=== PATIENT | female | born 1990 | race Caucasian/White ===

== ENCOUNTER 2020-10-26 13:46 | Inpatient (IN) | payer MEDICAID, SELFPAY ==
--- NOTE | ~2020-10-26 | CT_ITS ---
EXAMINATION: CT ABDOMEN AND PELVIS WITHOUT CONTRAST CLINICAL INFORMATION: Reason for Exam abd pain, ? pancreatitis . COMPARISON: No pertinent prior studies are available for comparison. TECHNIQUE: Multidetector volumetric imaging was performed from the superior aspect of the liver through the pubic symphysis without contrast per renal stone protocol. Sagittal and coronal reformatted images were obtained on the technologist workstation. This CT examination was performed using dose optimization techniques as appropriate, variously including the following: *Automated exposure control *Adjustment of mA and/or kV according to patient size (this includes techniques or standardized protocols for targeted exams where dose is matched to indication/reason for exam; i.e. extremities or head) *Use of iterative reconstruction technique DLP: 366 mGy-cm. FINDINGS: LUNG BASES: The visualized lung bases are unremarkable. LIVER, GALLBLADDER, BILIARY TREE: There is diffuse fatty attrition of the liver with areas of focal fatty sparing. No biliary ductal dilatation. Sludge or hyperdense bile layering in the dependent portion of the otherwise unremarkable gallbladder. No gallbladder wall thickening or pericholecystic inflammatory changes. PANCREAS: Unremarkable. No peripancreatic inflammatory changes or fluid at this time. SPLEEN: Unremarkable. ADRENAL GLANDS: Unremarkable. KIDNEYS AND URETERS: The kidneys are normal in size, shape, and attenuation. No hydronephrosis, hydroureter, or calculi seen. No perinephric stranding. BLADDER: Unremarkable. GASTROINTESTINAL TRACT: The small and large bowel are unremarkable. Portions of the colon are decompressed and difficult to assess. ABDOMINAL WALL: No significant hernia is appreciated. LYMPHOVASCULAR STRUCTURES: No lymphadenopathy. The aorta is unremarkable.. PELVIC VISCERA: Unremarkable. OSSEUS STRUCTURES: Unremarkable. CT/CT abdomen wo con IMPRESSION: Diffuse fatty infiltration of the liver but no focal hepatic lesion or biliary ductal dilatation. Layering sludge or hyperdense bowel in the dependent portion of the otherwise unremarkable gallbladder. I do not appreciate any pancreatic ductal dilatation or peripancreatic inflammatory changes/fluid at this time.
[2020-10-26 15:13] VITALS: BP 127/83; PULSE 140; RESP 18; TEMP 36.8; O2SAT 95; BMI 22.3
[2020-10-26 15:36] LABS: MANUAL DIFF FLAG NO
[2020-10-26 15:39] LABS: Basophils Percent Auto 0.3 % (0-2); Hematocrit 39.7 % (37-47); Hemoglobin 14.1 g/dl (12.0-16.0); Imm Gran Pct Auto 1.4 % (0.0-0.4); Lymphocytes Absolute Auto 1.2 X10*3/uL (1.2-4.9); Lymphocytes Percent Auto 16.6 % (20-40); Mean Corpuscular HGB Conc 35.5 g/dl (31.0-35.0); Mean Corpuscular Hemoglobin 33.8 pg (27.0-33.0); Mean Corpuscular Volume 95.2 fL (80-98); Mean Platelet Volume 8.5 fL (9.4-12.3); Monocytes Absolute Auto 0.4 X10*3/uL (0.1-1.2); Monocytes Percent Auto 5.7 % (2-11); NRBC Pct Auto 0.4 /100WBC (0.0-0.2); Neutrophils Absolute Auto 5.3 X10*3/uL (2.0-8.3); Platelet Count 166 X10*3/uL (160-400); Red Blood Count 4.17 X10*6/uL (4.20-5.50)
[2020-10-26 16:07] LABS: Anion Gap 19 (12-20); Blood Urea Nitrogen 5 mg/dL (9-16); Calcium 8.7 mg/dL (8.4-10.2); Carbon Dioxide 24 mmol/L (22-29); Chloride 105 mmol/L (96-108); Creatinine Clr Calc Pharmacy 99.1; Estimated Glomerular Filt Rate > 60; Glucose Random 111 mg/dL (60-115); Potassium 3.8 mmol/L (3.3-5.1); Sodium 144 mmol/L (135-145)
--- NOTE | 2020-10-26 16:30 | ED.GENADULT ---
HPI - General Adult General Chief complaint: General Medical Stated complaint: VOMITING Time Seen by Provider: 10/26/20 16:26 Source: patient and family Mode of arrival: ambulatory Limitations: no limitations History of Present Illness HPI narrative: 30-year-old female who is a daily alcohol drinker, and opiate dependent, patient came in for vomiting for the past 3 days, patient was trying to drink alcohol despite the vomiting but cannot keep it down, patient also using opiate as a drug abuse unable to take any p.o. challenge. Related Data Allergies Allergy/AdvReac Type Severity Reaction Status Date / Time cefuroxime Allergy Shortness Verified 10/26/20 15:19 of Breath Review of Systems Review of Systems: All other systems are reviewed and are negative Constitutional: Reports as per HPI and Reports no additional constitutional complaints Eyes: Reports as per HPI and Reports no additional eye complaints Reports system reviewed and no additional complaints, except as documented Cardiovascular: Reports as per HPI and Reports no additional cardiovascular complaints Respiratory: Reports as per HPI and Reports no additional respiratory complaints Gastrointestinal: Reports as per HPI and Reports no additional gastrointestinal complaints Genitourinary: Reports no additional female genitourinary complaints Musculoskeletal: Reports no additional musculoskeletal complaints Skin/Breast: Reports system reviewed and no additional complaints, except as docu Psychiatric: Reports no additional psychiatric complaints Endocrine: Reports no additional endocrine complaints Hematologic/Lymphatic: Reports no additional hematologic/lymphatic complaints Allergic/Immunologic: Reports no additional allergic/immunologic complaints Reports system reviewed and no additional complaints, except as documented and Reports Abnormal speech present [facility] Social History Social History Advance Directives: No Advance Directives Information Provided: Yes Physical Exam Vital Signs: Vital Signs: Last Vital Signs Temp 98.2 F 10/26/20 15:13 Pulse 140 H 10/26/20 15:13 Resp 18 10/26/20 15:13 BP 127/83 10/26/20 15:13 Pulse Ox 95 10/26/20 15:13 Body Mass Index 22.3 Vital signs have been reviewed as appeared to be correct. Blood pressure normal. Heart rate is elevated. Respiration rate normal. Temperature normal. Oxygen saturation normal. Appearance: Alert. Oriented X3. No acute distress. Anxious Head: Normal external exam. Normocephalic. Atraumatic. No Coughlin signs noted. No raccoon eyes noted Eyes: PERRLA. EOMI. Conjunctiva and sclera normal. Eyelids normal. ENT: TM's Normal. Pharynx normal. Uvula midline. Moist mucous membranes. No trismus noted. No drooling noted. No muffled voice noted. Neck: Normal inspection. Neck supple. FROM. No adenopathy. Thyroid Normal. No meningeal signs. No neck mass noted. CVS: Normal heart rate and rhythm. Heart sound normal. No murmurs noted. Pulses normal throughout. Respiratory: No respiratory distress. Painless inspiration. Breath sounds normal. No wheezes/rales/rhonchi noted. Chest nontender. No accessory muscle usage noted or decreased air movement noted. Abdomen: Soft and nontender. Bowel sounds normal in all 4 quadrants. No distention noted. No organomegaly noted. No visible injury noted. Back: No CVA tenderness. Full range of motion noted. Skin: Skin warm and dry. Normal skin color. Normal skin turgor. No rashes/lesions/lacerations noted. Extremities: No lower extremity edema. Extremities exhibit normal range of motion. Extremities nontender. Bilateral involuntary tremors, and tongue fasciculation. Neuro: Oriented X 3. No motor deficit. No sensory deficit. Reflexes normal. Course Course Course Narrative: Assessment and plan. 30-year-old female history of daily alcohol abuse, patient is unable to drink alcohol for the past few days because of the persistence of vomiting, patient now is sustaining alcohol withdrawal, well admit the patient for IV hydration, Ativan/phenobarb for swelling. Medical Decision Making Lab Data Lab results reviewed: Yes I reviewed the patient's lab results. Result diagrams: 10/26/20 15:32 10/26/20 15:32 Labs: Lab Results 10/26/20 10/26/20 10/26/20 Range/Units 15:32 15:32 15:32 WBC 7.0 (4.8-10.8) X10*3/uL RBC 4.17 L (4.20-5.50) X10*6/uL Hgb 14.1 (12.0-16.0) g/dl Hct 39.7 (37-47) % MCV 95.2 (80-98) fL MCH 33.8 H (27.0-33.0) pg MCHC 35.5 H (31.0-35.0) g/dl RDW 16.0 (11.0-16.0) % Plt Count 166 (160-400) X10*3/uL MPV 8.5 L (9.4-12.3) fL Immature Gran % (Auto) 1.4 H (0.0-0.4) % Neut % (Auto) 76.0 H (45-73) % Lymph % (Auto) 16.6 L (20-40) % [place] % (Auto) 5.7 (2-11) % Eos % (Auto) 0.0 (0-4) % Baso % (Auto) 0.3 (0-2) % Lymph # (Auto) 1.2 (1.2-4.9) X10*3/uL [place] # (Auto) 0.4 (0.1-1.2) X10*3/uL Eos # (Auto) 0.0 (0.0-0.4) X10*3/uL Baso # (Auto) 0.0 (0.0-0.2) X10*3/uL Abs Immat Gran (auto) 0.10 H (0.00-0.03) X10*3/uL Absolute Neuts (auto) 5.3 (2.0-8.3) X10*3/uL Absolute Nucleated RBC 0.030 H (0.0-0.012) X10*3/uL Nucleated RBC % (auto) 0.4 H (0.0-0.2) /100WBC Hold Blue Top SEE NOTE Sodium 144 (135-145) mmol/L Potassium 3.8 (3.3-5.1) mmol/L Chloride 105 (96-108) mmol/L Carbon Dioxide 24 (22-29) mmol/L Anion Gap 19 (12-20) BUN 5 L (9-16) mg/dL Creatinine 0.71 (0.5-1.4) mg/dL Estim Creat Clear Calc 99.1 Estimated GFR > 60 Random Glucose 111 (60-115) mg/dL Calcium 8.7 (8.4-10.2) mg/dL Discharge Plan Discharge Clinical Impression: Alcohol withdrawal Patient Disposition: Admitted As Inpatient
[2020-10-26 17:04] VITALS: BP 131/87; PULSE 129; RESP 20; TEMP 36.8; O2SAT 98
--- NOTE | 2020-10-26 17:05 | PC.NURSE ---
Called pharmacy for folic acid- awaiting arrival of medication.
[2020-10-26 17:13] LABS: Alanine Aminotransferase 27 U/L (0-31); Albumin Level 4.3 g/dL (3.5-5.0); Alkaline Phosphatase 67 U/L (39-117); Aspartate Amino Transferase 74 U/L (5-31); Bilirubin Direct 0.2 mg/dL (0.0-0.5); Bilirubin Total 0.5 mg/dL (0.0-1.0); Magnesium 2.2 mg/dL (1.6-2.6)
[2020-10-26] MEDS: ondansetron HCL 4 MG/2 ML VIAL IVPUSH ×2 (17:13→18:43)
[2020-10-26] MEDS: Pantoprazole Sodium 40 MG/10 ML VIAL IVPUSH (17:13)
[2020-10-26] MEDS: PHENobarbitaL sodium 130 MG/ML VIAL 175 MG IM (17:13)
[2020-10-26 17:17] LABS: Ethanol 251 mg/dL
[2020-10-26 17:32] LABS: Lipase 216 U/L (8-78)
[2020-10-26] MEDS: 0.9 % Sodium Chloride 1,000 ML 999 ML IVCONT (17:54)
[2020-10-26] MEDS: Thiamine HCL 200 MG/2 ML VIAL 100 MG IVPUSH (17:54)
[2020-10-26 18:40] VITALS: BP 131/81; PULSE 117; RESP 20; TEMP 36.9; O2SAT 98
--- NOTE | 2020-10-26 18:42 | P.EN_ITS ---
Event Note Date of Service: 10/27/20 Event Note: I interviewed and examined the patient. I discussed their present ation and management with the mid-level provider. I reviewed the history and physical and agree with the documentation, with the following additions and corrections: 30yo F with inflammatory arthritis/sacroiliitis presenting with 3d of vomiting and worsening abdominal pain in the setting of drinking 2 bottles of wine daily for the past 6 months. Also taking kratom, which she sees as a natural alternative to opioids for her back pain. On exam, tachycardic with epigastric tenderness. Not tremulous but already started on phenobarbital in ED. Lipase and AST elevated. Plan admit to [facility], phenobarbital taper, folate/multivitamin, sobriety counseling, addiciton medicine consultation. Suspect pancreatitis- CT pending. Will give IV fluid hydration + morphine prn pain
[2020-10-26] MEDS: Lactated Ringers 1,000 ML 150 ML IVCONT (18:43)
[2020-10-26] MEDS: Enoxaparin Sodium 40 MG/0.4 ML SYRINGE SUBCUT (18:43)
[2020-10-26] MEDS: Ketorolac Tromethamine 15 MG/ML VIAL IV (18:43)
--- NOTE | 2020-10-26 20:05 | HP_ITS ---
DATE OF SERVICE: 10/26/2020 CHIEF COMPLAINT: Back pain. HISTORY OF PRESENT ILLNESS: 30-year-old woman with history of heavy alcohol drinking. She reports she drinks at least 2 bottles of wine and has been doing this consistently for over the past 6 months. She also is opiate dependent and reports that she takes it over the counter, natural opiate for her back pain. She reported that she started having some vomiting over the last 3 days and had her last drink of alcohol this morning. She reported that several weeks ago, she was started on naltrexone for opiate abuse and since then reports that her alcohol withdrawals and pain have been worse. In the ER, her lipase was noted to be elevated at 216. She does have some abdominal pain. Her pulse was noted to be elevated at 129. She was started on phenobarbital while in the ER. Given folic acid, lorazepam, thiamine, Protonix, Zofran. She will be admitted for further management and treatment of acute pancreatitis secondary to alcohol abuse. PAST MEDICAL HISTORY: 1. Alcohol abuse. 2. Inflammatory arthritis with history of tissue removal from SI joint. 3. . FAMILY HISTORY: Denies cardiac disease. SOCIAL HISTORY: Reports drinking 2 bottles of wine a day for the past 6 months. Denies tobacco or illicit drug use. ALLERGIES: ALLERGIES TO CEFUROXIME. MEDICATIONS: 1. Gabapentin 3 caps p.o. at bedtime. 2. Sertraline 1 tab p.o. at bedtime. REVIEW OF SYSTEMS: CONSTITUTIONAL: Denies any recent fever, chills, or decrease in appetite. RESPIRATORY: Denies any shortness of breath, cough, or sputum production. CARDIOVASCULAR: Denies any chest pain, orthopnea, PND, or edema. GASTROINTESTINAL: See HPI. GENITOURINARY: Denies any dysuria, frequency, or hematuria. MUSCULOSKELETAL: Denies any joint pains or swelling. NEUROPSYCH: Denies any weakness or seizures. All other systems are reviewed and are negative. PHYSICAL EXAMINATION: CONSTITUTIONAL: The patient is resting in bed, in moderate amount of pain. VITAL SIGNS: 98.2, 129, 20, 131/87, 98% on room air. SKIN: Intact without rashes or open sores. HEENT: Head is normocephalic, atraumatic. Eyes, pupils are PERRLA. Sclerae anicteric. Mouth and Throat: Mucous membranes are intact and moist. NECK: Supple. No lymphadenopathy. No JVD noted. CHEST: Clear to auscultation without wheezes, rhonchi, or rales. HEART: Regular rate and rhythm. Clear S1, S2. No murmurs, rubs, or gallops. ABDOMEN: Positive bowel sounds. Abdomen is diffusely tender. NEURO: The patient is alert and oriented x3. Cranial nerves II through XII are grossly intact without focal deficits. LABORATORY DATA: WBC 7.0, hemoglobin 14.1, hematocrit 39.7, platelets 166. Sodium is 144, potassium is 2.8, chloride is 105, bicarb is 24, BUN is 5, creatinine is 0.71. Alcohol level is 251. ASSESSMENT AND PLAN: A 30-year-old woman with a history of heavy alcohol abuse and opiate abuse, presents with abdominal pain and back pain. She reports that she was started on naltrexone several weeks ago for chronic opiate use. She reports that her withdrawals have been pretty severe since then. She also reported vomiting over the last 3 days, which has not subsided and she has continued to drink. 1. Alcohol withdrawal. Drinks 2 bottles of wine a day over the last 6 months. Prior to that, had not been a heavy drinker. a. Phenobarbital protocol. b. Care team consultation. c. Folic acid, thiamine, multivitamin. 2. Abdominal pain/pancreatitis, secondary to alcohol abuse. a. Aggressive IV fluid hydration. b. Pain management. c. Abdominal CT is pending. 3. Back pain. The patient reports history of tissue removal from the SI joint due to her arthritis. a. Pain Management. 4. Opiate abuse. The patient reports taking an over the counter organic pain medication, unfamiliar with the name. She also takes gabapentin. According to the prescription, drug monitoring program, no other opiates are noted since 2019. 5. Tachycardia. Secondary to pain. 6. IV fluid hydration. 7. Deep venous thrombosis prophylaxis with Lovenox. LORAINE Bailon MD JR/LIANE / [id number]
[2020-10-26] MEDS: PHENobarbitaL sodium 130 MG/ML VIAL IM ×2 (20:23→22:51)
--- NOTE | 2020-10-26 20:45 | MHC.CM.PN ---
CM attempted to meet with pt, but pt was sleeping. Will be admitted with alcohol withdrawal and acute pancreatitis. Pt 999 status without bed assignment. Pt listed as self-pay. Will refer to financial counseling. Will meet with pt when more awake. CM to follow for d/c needs.
[2020-10-26 20:57] LABS: COVID-19 Test Negative (Negative)
[2020-10-26] MEDS: Gabapentin 300 MG CAPSULE PO (21:25)
[2020-10-26] MEDS: Sertraline HCL 100 MG TABLET PO (21:26)
[2020-10-26] MEDS: hydrOXYzine HCL 25 MG TABLET PO (21:26)
[2020-10-26 21:31] VITALS: RESP 20
[2020-10-26] MEDS: Morphine Sulfate 2 MG/ML CARTRIDGE IVPUSH (21:31)
--- NOTE | 2020-10-26 21:40 | PC.NURSE ---
Pt medicated for increased anxiety, diffuse abd pain. Pt denies nausea. Awaiting bed assignment. Pt aware and agreeable to plan of care.
--- NOTE | 2020-10-26 22:48 | MHC.CM.PN ---
CM attempted to meet with pt. again, but pt continues to sleep. Pt recently medicated. Unable to complete assessment at this time. Pt will need referral to financial counseling. CM to follow for d/c needs.
[2020-10-26] MEDS: oxyCODONE HCl Immed Release 5 MG TABLET PO (22:50)
[2020-10-26 22:57] VITALS: BP 132/56; PULSE 98; RESP 20; TEMP 37.1; O2SAT 98
--- NOTE | 2020-10-26 22:58 | PC.NURSE ---
Verified w/ Dr. Jose and pharmacy ok to give Ativan
[2020-10-26] MEDS: LORazepam 1 MG TABLET PO (22:59)
[2020-10-27 01:25] VITALS: BP 134/76; PULSE 134; RESP 16; TEMP 36.7; O2SAT 99
--- NOTE | 2020-10-27 01:34 | PC.NURSE ---
Dr. Jose aware of pts status and vs.
[2020-10-27] MEDS: Lactated Ringers 1,000 ML 150 ML IVCONT ×4 (02:11→22:46)
[2020-10-27 07:16] LABS: MANUAL DIFF FLAG NO
[2020-10-27 07:26] LABS: Basophils Percent Auto 0.2 % (0-2); Eosinophils Absolute Auto 0.1 X10*3/uL (0.0-0.4); Eosinophils Percent Auto 0.8 % (0-4); Hematocrit 30.7 % (37-47); Hemoglobin 10.6 g/dl (12.0-16.0); Imm Gran Abs Auto 0.06 X10*3/uL (0.00-0.03); Imm Gran Pct Auto 0.9 % (0.0-0.4); Lymphocytes Absolute Auto 1.1 X10*3/uL (1.2-4.9); Lymphocytes Percent Auto 16.4 % (20-40); Mean Corpuscular HGB Conc 34.5 g/dl (31.0-35.0); Mean Corpuscular Hemoglobin 33.8 pg (27.0-33.0); Mean Corpuscular Volume 97.8 fL (80-98); Mean Platelet Volume 8.4 fL (9.4-12.3); Monocytes Absolute Auto 0.6 X10*3/uL (0.1-1.2); Monocytes Percent Auto 8.8 % (2-11); Neutrophils Absolute Auto 4.7 X10*3/uL (2.0-8.3); Neutrophils Percent Auto 72.9 % (45-73); Platelet Count 106 X10*3/uL (160-400); Red Blood Count 3.14 X10*6/uL (4.20-5.50); White Blood Count 6.4 X10*3/uL (4.8-10.8)
[2020-10-27 07:45] LABS: Anion Gap 12 (12-20); Blood Urea Nitrogen 9 mg/dL (9-16); Carbon Dioxide 25 mmol/L (22-29); Chloride 106 mmol/L (96-108); Estimated Glomerular Filt Rate > 60; Glucose Random 95 mg/dL (60-115); Potassium 3.3 mmol/L (3.3-5.1); Sodium 140 mmol/L (135-145)
[2020-10-27 08:00] LABS: Calcium 7.4 mg/dL (8.4-10.2); Lipase 657 U/L (8-78)
--- NOTE | 2020-10-27 08:01 | PC.NURSE ---
report taken from torres rn pt here for acute pancreatitis, elevated lipase. pt appears to be sleeping at this time, iv fluids infusing, no appearance of withdrawal s/s. wctm.
[2020-10-27 08:54] VITALS: BP 137/91; PULSE 114; RESP 18; O2SAT 99
[2020-10-27] MEDS: Lidocaine 4 % Patch ADH..PATCH 2 PATCH TRANSDERMA (08:59)
[2020-10-27] MEDS: Thiamine HCL 100 MG TABLET PO (09:00)
[2020-10-27] MEDS: Folic Acid 1 MG TABLET PO (09:00)
[2020-10-27] MEDS: Multivitamin TABLET 1 TAB PO (09:00)
[2020-10-27] MEDS: Morphine Sulfate 2 MG/ML CARTRIDGE IVPUSH ×2 (09:00→22:52)
[2020-10-27] MEDS: PHENobarbitaL 15 MG TABLET 45 MG PO ×2 (09:00→20:34)
--- NOTE | 2020-10-27 09:14 | MHC.CM.PN ---
pt lives alone in her apt. she reports that she is independent in her care. she has a s.o. who can help her c her needs. she will benefit from a care team consult prior to dc. if pt returns home at dc it will be without any svcs and her s.o. will transport. dc plan is to detox or home pending on care team consult . cm to cont. to follow.
--- NOTE | 2020-10-27 09:47 | PC.NURSE ---
pt waking up, appears uncomfortable, asking for prn pain medications. tolerating po, given morning meds and prn pain medications. pt awaiting inpt bed assign. wctm.
--- NOTE | 2020-10-27 15:44 | HO.PM.IMPN ---
Subjective Subjective Date of Service: 10/27/20 Interval History: still c/o severe epigastric pain + nausea no fever Physical Exam Vital Signs: Vital Signs: Last Vital Signs Temp 98.1 F 10/27/20 01:25 Pulse 114 H 10/27/20 08:54 Resp 18 10/27/20 08:54 BP 137/91 H 10/27/20 08:54 Pulse Ox 99 10/27/20 08:54 Body Mass Index 22.3 Gen: in no acute distress HEENT: sclera anicteric, moist mucus membranes Neck: supple Lungs: clear to auscultation bilaterally Heart: tachycardic, no murmurs Abd: soft, epigastric + periumbilical tenderness without rebound Ext: no edema Skin: warm/well-perfused Neuro: alert and oriented x3, no focal findings Psych: appropriate affect Objective Data Current Medications Generic Name Dose Route Start Last Admin Trade Name Freq PRN Reason Stop Dose Admin Acetaminophen 650 mg 10/26/20 18:18 Acetaminophen 325 Mg Tablet PO Q6H PRN Pain, Mild (Pain Scale 1-3) Enoxaparin Sodium 40 mg 10/26/20 19:00 10/26/20 18:43 Enoxaparin Sodium 40 Mg/0.4 Ml Syringe SUBCUT 40 mg Q24H DAYRON Administration Folic Acid 1 mg 10/27/20 09:00 10/27/20 09:00 Folic Acid 1 Mg Tablet PO 1 mg DAILY [facility] Administration Gabapentin 300 mg 10/26/20 21:00 10/26/20 21:25 Gabapentin 300 Mg Capsule PO 300 mg BEDTIME DAYRON Administration Hydroxyzine HCl 25 mg 10/26/20 21:01 10/26/20 21:26 Hydroxyzine Hcl 25 Mg Tablet PO 25 mg QID PRN Administration anxiety/restlessness Lactated Ringer's 1,000 mls @ 150 mls/hr 10/26/20 18:18 10/27/20 14:43 Lr IVCONT 150 mls/hr .[id number] DAYRON Administration Lidocaine 2 patch 10/27/20 09:00 10/27/20 08:59 Lidocaine 4 % Patch Adh..Patch TRANSDERMA 2 patch DAILY [facility]RON Administration Protocol Medication 1 each 10/26/20 17:00 No Benzodiazepines MISCELLANE DAILY [facility] Protocol Morphine Sulfate 2 mg 10/26/20 18:18 10/27/20 09:00 Morphine Sulfate 2 Mg/Ml Cartridge IVPUSH 2 mg Q4H PRN Administration Pain, Mild (Pain Scale 1-3) Multivitamins/Vitamin C 1 tab 10/27/20 09:00 10/27/20 09:00 Multivitamin Tablet PO 1 tab DAILY [facility] Administration Ondansetron HCl 4 mg 10/26/20 18:18 Ondansetron Hcl 4 Mg/2 Ml Vial IVPUSH Q8H PRN Nausea and Vomiting Oxycodone HCl 5 mg 10/26/20 18:18 10/26/20 22:50 Oxycodone Hcl Immed Release 5 Mg Tablet PO 5 mg Q4H PRN Administration pain Pharmacy Consult 1 each 10/26/20 16:38 Consult Rx Perform Med Rec MISCELLANE ONCE PRN Consult order Phenobarbital 45 mg 10/27/20 09:00 10/27/20 09:00 Phenobarbital 15 Mg Tablet PO 10/28/20 21:01 45 mg BID [facility] Administration Protocol Phenobarbital 15 mg 10/29/20 09:00 Phenobarbital 15 Mg Tablet PO 10/30/20 21:01 BID [facility] Protocol Phenobarbital 15 mg 10/31/20 09:00 Phenobarbital 15 Mg Tablet PO 11/01/20 09:01 DAILY [facility] Protocol Sertraline HCl 100 mg 10/26/20 21:00 10/26/20 21:26 Sertraline Hcl 100 Mg Tablet PO 100 mg BEDTIME [facility] Administration Sodium Chloride 3 ml 10/27/20 00:00 10/27/20 07:55 0.9 % Sodium Chloride Flush 3 Ml Syringe IVFLUSH Not Given QSHIFT [facility] Thiamine HCl 100 mg 10/27/20 09:00 10/27/20 09:00 Thiamine Hcl 100 Mg Tablet PO 100 mg DAILY [facility] Administration Labs CBC & Chem 7: 10/27/20 07:12 10/27/20 07:12 Labs: Laboratory Results - last 24 hr 10/26/20 10/26/20 10/26/20 15:32 15:32 20:36 WBC RBC Hgb Hct MCV MCH MCHC RDW Plt Count MPV Immature Gran % (Auto) Neut % (Auto) Lymph % (Auto) [place] % (Auto) Eos % (Auto) Baso % (Auto) Lymph # (Auto) [place] # (Auto) Eos # (Auto) Baso # (Auto) Abs Immat Gran (auto) Absolute Neuts (auto) Absolute Nucleated RBC Nucleated RBC % (auto) Sodium 144 Potassium 3.8 Chloride 105 Carbon Dioxide 24 Anion Gap 19 BUN 5 L Creatinine 0.71 Estim Creat Clear Calc 99.1 Estimated GFR > 60 Random Glucose 111 Calcium 8.7 Magnesium 2.2 Total Bilirubin 0.5 Direct Bilirubin 0.2 AST 74 H ALT 27 Alkaline Phosphatase 67 Total Protein 8.0 Albumin 4.3 Lipase 216 H Ethyl Alcohol 251 COVID-19 (BETY) Negative COVID-19 Clin Com See Note 10/27/20 10/27/20 07:12 07:12 WBC 6.4 RBC 3.14 L D Hgb 10.6 L D Hct 30.7 L D MCV 97.8 MCH 33.8 H MCHC 34.5 RDW 16.0 Plt Count 106 L D MPV 8.4 L Immature Gran % (Auto) 0.9 H Neut % (Auto) 72.9 Lymph % (Auto) 16.4 L [place] % (Auto) 8.8 Eos % (Auto) 0.8 Baso % (Auto) 0.2 Lymph # (Auto) 1.1 L [place] # (Auto) 0.6 Eos # (Auto) 0.1 Baso # (Auto) 0.0 Abs Immat Gran (auto) 0.06 H Absolute Neuts (auto) 4.7 Absolute Nucleated RBC 0.000 Nucleated RBC % (auto) 0.0 Sodium 140 Potassium 3.3 Chloride 106 Carbon Dioxide 25 Anion Gap 12 BUN 9 D Creatinine 0.67 Estim Creat Clear Calc 105.0 Estimated GFR > 60 Random Glucose 95 Calcium 7.4 L D Magnesium Total Bilirubin Direct Bilirubin AST ALT Alkaline Phosphatase Total Protein Albumin Lipase 657 H Ethyl Alcohol COVID-19 (BETY) COVID-19 Clin Com ITS Impressions Abdomen CT 10/26/20 19:56 IMPRESSION: Diffuse fatty infiltration of the liver but no focal hepatic lesion or biliary ductal dilatation. Layering sludge or hyperdense bowel in the dependent portion of the otherwise unremarkable gallbladder. I do not appreciate any pancreatic ductal dilatation or peripancreatic inflammatory changes/fluid at this time. Assessment and Plan (1) Alcohol withdrawal: Status: Acute (2) Alcoholic pancreatitis: Status: Acute (3) Opioid withdrawal: Status: Acute Assessment and Plan: hospital d#2 30yo F with hx alcohol and opioid/kratom abuse presenting with worsening abd pain/nausea, admitted for EtOH withdrawal and suspected pancreatitis # alcohol withdrawal - phenobarbital taper, vitamins, counseling # acute alcoholic pancreatitis - still suspected despite negative CT findings (done without contrast), IV fluid hydration, EtOH cessation, prn morphine # opioid withdrawal from kratom - prn clonidine # inflammatory arthritis/sacroiliitis - will need outpt rheumatology # VTE ppx - LMWH
[2020-10-27 16:10] VITALS: BP 131/86; PULSE 105; RESP 14; O2SAT 96
--- NOTE | 2020-10-27 16:45 | HO.ADDICTCON ---
History of Present Illness Date of Service: 10/27/2020 Chief Complaint: Abdominal pain Reason for Consult: AUD Also use of Kratom Requesting physician: Valdemar Parker Discussed with referring provider: Yes Sources of Information: patient interviewed and chart reviewed HPI Narrative: Patient is a 30 year old female currently medically admitted with alcohol withdrawal and acute pancreatitis. Consult requested as patient was reproting daily Kratom use as well. Patient seen in ED, eyes closed, visibly uncomfortable Reports she has been taking Kratom (in powder form in tea) for about 4 years. Unclear how much she is currently taking, but did report that at one time she was taking it every two hours. She states she has been trying to cut down the amount she takes (for her back pain) and has not had any in two days d/t vomiting. Per H&P, she reports drinking 2 bottles of wine every night Past Psychiatric History: not reviewed Medical Evaluation Reviewed: Yes Personal & Social History: pending full assessment Review of Systems Review of Systems patient with eyes closed, reporting abdominal pain and back pain. Visibly tremulous as well Diagnostics Vital Signs (24Hr): Vital Signs - 24 hr 10/26/20 17:04 10/26/20 18:40 10/26/20 21:31 Temperature 98.2 F 98.4 F Pulse Rate 129 H 117 H Respiratory Rate 20 20 20 Blood Pressure 131/87 131/81 Pulse Oximetry 98 98 10/26/20 22:57 10/27/20 01:25 10/27/20 08:54 Temperature 98.7 F 98.1 F Pulse Rate 98 134 H 114 H Respiratory Rate 20 16 18 Blood Pressure 132/56 L 134/76 137/91 H Pulse Oximetry 98 99 99 10/27/20 16:10 Temperature Pulse Rate 105 H Respiratory Rate 14 Blood Pressure 131/86 Pulse Oximetry 96 Body Mass Index 22.3 Labs Results: 10/27/20 07:12 10/27/20 07:12 Labs: Laboratory Results - last 48 hr 10/26/20 10/26/20 10/26/20 15:32 15:32 15:32 WBC 7.0 RBC 4.17 L Hgb 14.1 Hct 39.7 MCV 95.2 MCH 33.8 H MCHC 35.5 H RDW 16.0 Plt Count 166 MPV 8.5 L Immature Gran % (Auto) 1.4 H Neut % (Auto) 76.0 H Lymph % (Auto) 16.6 L [place] % (Auto) 5.7 Eos % (Auto) 0.0 Baso % (Auto) 0.3 Lymph # (Auto) 1.2 [place] # (Auto) 0.4 Eos # (Auto) 0.0 Baso # (Auto) 0.0 Abs Immat Gran (auto) 0.10 H Absolute Neuts (auto) 5.3 Absolute Nucleated RBC 0.030 H Nucleated RBC % (auto) 0.4 H Hold Blue Top SEE NOTE Sodium 144 Potassium 3.8 Chloride 105 Carbon Dioxide 24 Anion Gap 19 BUN 5 L Creatinine 0.71 Estim Creat Clear Calc 99.1 Estimated GFR > 60 Random Glucose 111 Calcium 8.7 Magnesium 2.2 Total Bilirubin 0.5 Direct Bilirubin 0.2 AST 74 H ALT 27 Alkaline Phosphatase 67 Total Protein 8.0 Albumin 4.3 Lipase 216 H Ethyl Alcohol COVID-19 ([facility]) COVID-19 [employer] 10/26/20 10/26/20 10/27/20 15:32 20:36 07:12 WBC 6.4 RBC 3.14 L D Hgb 10.6 L D Hct 30.7 L D MCV 97.8 MCH 33.8 H MCHC 34.5 RDW 16.0 Plt Count 106 L D MPV 8.4 L Immature Gran % (Auto) 0.9 H Neut % (Auto) 72.9 Lymph % (Auto) 16.4 L [place] % (Auto) 8.8 Eos % (Auto) 0.8 Baso % (Auto) 0.2 Lymph # (Auto) 1.1 L [place] # (Auto) 0.6 Eos # (Auto) 0.1 Baso # (Auto) 0.0 Abs Immat Gran (auto) 0.06 H Absolute Neuts (auto) 4.7 Absolute Nucleated RBC 0.000 Nucleated RBC % (auto) 0.0 Hold Blue Top Sodium Potassium Chloride Carbon Dioxide Anion Gap BUN Creatinine Estim Creat Clear Calc Estimated GFR Random Glucose Calcium Magnesium Total Bilirubin Direct Bilirubin AST ALT Alkaline Phosphatase Total Protein Albumin Lipase Ethyl Alcohol 251 COVID-19 ([facility]) Negative COVID-19 Clin Com See Note 10/27/20 07:12 WBC RBC Hgb Hct MCV MCH MCHC RDW Plt Count MPV Immature Gran % (Auto) Neut % (Auto) Lymph % (Auto) [place] % (Auto) Eos % (Auto) Baso % (Auto) Lymph # (Auto) [place] # (Auto) Eos # (Auto) Baso # (Auto) Abs Immat Gran (auto) Absolute Neuts (auto) Absolute Nucleated RBC Nucleated RBC % (auto) Hold Blue Top Sodium 140 Potassium 3.3 Chloride 106 Carbon Dioxide 25 Anion Gap 12 BUN 9 D Creatinine 0.67 Estim Creat Clear Calc 105.0 Estimated GFR > 60 Random Glucose 95 Calcium 7.4 L D Magnesium Total Bilirubin Direct Bilirubin AST ALT Alkaline Phosphatase Total Protein Albumin Lipase 657 H Ethyl Alcohol COVID-19 ([facility]) COVID-19 Clin Com Imaging Radiology Impressions: ITS Impressions Abdomen CT 10/26/20 19:56 IMPRESSION: Diffuse fatty infiltration of the liver but no focal hepatic lesion or biliary ductal dilatation. Layering sludge or hyperdense bowel in the dependent portion of the otherwise unremarkable gallbladder. I do not appreciate any pancreatic ductal dilatation or peripancreatic inflammatory changes/fluid at this time. Mental Status Exam Mental Status Exam Patient Appearance: Perspiring Patient Orientation: Person, Place, Time and Situation Level of Consciousness: Drowsy Patient Behavior: Sedated Medications Medications Current Medications Generic Name Dose Route Start Last Admin Trade Name Freq PRN Reason Stop Dose Admin Acetaminophen 650 mg 10/26/20 18:18 Acetaminophen 325 Mg Tablet PO Q6H PRN Pain, Mild (Pain Scale 1-3) Clonidine HCl 0.1 mg 10/27/20 15:45 Clonidine Hcl 0.1 Mg Tablet PO TID PRN opioid withdrawal Protocol Enoxaparin Sodium 40 mg 10/26/20 19:00 10/26/20 18:43 Enoxaparin Sodium 40 Mg/0.4 Ml Syringe SUBCUT 40 mg Q24H [facility] Administration Folic Acid 1 mg 10/27/20 09:00 10/27/20 09:00 Folic Acid 1 Mg Tablet PO 1 mg DAILY [facility] Administration Gabapentin 300 mg 10/26/20 21:00 10/26/20 21:25 Gabapentin 300 Mg Capsule PO 300 mg BEDTIME [facility] Administration Hydroxyzine HCl 25 mg 10/26/20 21:01 10/26/20 21:26 Hydroxyzine Hcl 25 Mg Tablet PO 25 mg QID PRN Administration anxiety/restlessness Lactated Ringer's 1,000 mls @ 150 mls/hr 10/26/20 18:18 10/27/20 14:43 Lr IVCONT 150 mls/hr .Q6H40M [facility] Administration Lidocaine 2 patch 10/27/20 09:00 10/27/20 08:59 Lidocaine 4 % Patch Adh..Patch TRANSDERMA 2 patch DAILY [facility] Administration Protocol Medication 1 each 10/26/20 17:00 No Benzodiazepines MISCELLANE DAILY [facility] Protocol Morphine Sulfate 2 mg 10/26/20 18:18 10/27/20 09:00 Morphine Sulfate 2 Mg/Ml Cartridge IVPUSH 2 mg Q4H PRN Administration Pain, Mild (Pain Scale 1-3) Multivitamins/Vitamin C 1 tab 10/27/20 09:00 10/27/20 09:00 Multivitamin Tablet PO 1 tab DAILY [facility] Administration Ondansetron HCl 4 mg 10/26/20 18:18 Ondansetron Hcl 4 Mg/2 Ml Vial IVPUSH Q8H PRN Nausea and Vomiting Oxycodone HCl 5 mg 10/26/20 18:18 10/26/20 22:50 Oxycodone Hcl Immed Release 5 Mg Tablet PO 5 mg Q4H PRN Administration pain Pharmacy Consult 1 each 10/26/20 16:38 Consult Rx Perform Med Rec MISCELLANE ONCE PRN Consult order Phenobarbital 45 mg 10/27/20 09:00 10/27/20 09:00 Phenobarbital 15 Mg Tablet PO 10/28/20 21:01 45 mg BID [facility] Administration Protocol Phenobarbital 15 mg 10/29/20 09:00 Phenobarbital 15 Mg Tablet PO 10/30/20 21:01 BID [facility] Protocol Phenobarbital 15 mg 10/31/20 09:00 Phenobarbital 15 Mg Tablet PO 11/01/20 09:01 DAILY [facility] Protocol Sertraline HCl 100 mg 10/26/20 21:00 10/26/20 21:26 Sertraline Hcl 100 Mg Tablet PO 100 mg BEDTIME [facility] Administration Sodium Chloride 3 ml 10/27/20 00:00 10/27/20 16:14 0.9 % Sodium Chloride Flush 3 Ml Syringe IVFLUSH Not Given QSHIFT [facility] Thiamine HCl 100 mg 10/27/20 09:00 10/27/20 09:00 Thiamine Hcl 100 Mg Tablet PO 100 mg DAILY [facility] Administration Allergies Allergies Allergy/AdvReac Type Severity Reaction Status Date / Time cefuroxime Allergy Shortness Verified 10/26/20 15:19 of Breath Assessment & Plan Assessment & Plan (1) Opioid withdrawal: Status: Acute Code(s): F11.23 - Opioid dependence with withdrawal Recommendations: Kratom withdrawal usually treated by using alpha-2 agonist (Clonidine) and in some cases short term benzos to treat severe anxiety Withdrawal in some cases can last up to 7 days Will see patient in AM to gather better history and ensure there are no opioids being used ETOH withdrawal being mananged with phenobarb protocol Greater than 50% of the session was spent on counseling and/or coordination of care [facility] Social History Social History Alcohol intake: current Alcohol intake frequency: 3 or more drinks per day Smoking Status: Unknown if ever smoked Use of substances other than those prescribed or required for medical reasons: Yes Substance Use Type: Opiates Advance Directives: No Advance Directives Information Provided: Yes service: No Current occupational status: unemployed
--- NOTE | 2020-10-27 19:31 | PC.NURSE ---
report was given to DANIEL Odell
[2020-10-27 20:22] VITALS: BP 141/96; PULSE 110; RESP 18; O2SAT 96
[2020-10-27 20:23] VITALS: BP 143/91; PULSE 122; RESP 16; TEMP 37.3; O2SAT 99
[2020-10-27] MEDS: ondansetron HCL 4 MG/2 ML VIAL IVPUSH (20:23)
[2020-10-27] MEDS: Sertraline HCL 100 MG TABLET PO (20:34)
[2020-10-27] MEDS: Gabapentin 300 MG CAPSULE PO (20:34)
[2020-10-27] MEDS: oxyCODONE HCl Immed Release 5 MG TABLET PO (20:34)
[2020-10-27] MEDS: Enoxaparin Sodium 40 MG/0.4 ML SYRINGE SUBCUT (20:35)
[2020-10-27] MEDS: hydrOXYzine HCL 25 MG TABLET PO (20:53)
[2020-10-27 23:26] VITALS: BP 121/88; PULSE 99; RESP 20; TEMP 36.8; O2SAT 96
[2020-10-28] VITALS (9 sets, daily range): BP systolic 120–134; BP diastolic 82–93; PULSE 82–106; RESP 16–20; TEMP 36.4–37.2; O2SAT 95–98
[2020-10-28] MEDS: oxyCODONE HCl Immed Release 5 MG TABLET PO ×4 (00:59→22:49)
[2020-10-28] MEDS: Calcium Carbonate 750 MG TAB.CHEW PO (01:16)
[2020-10-28] MEDS: ondansetron HCL 4 MG/2 ML VIAL IVPUSH (01:17)
[2020-10-28] MEDS: hydrOXYzine HCL 25 MG TABLET PO ×2 (01:59→22:50)
[2020-10-28] MEDS: traMADoL HCL 50 MG TABLET 25 MG PO (03:04)
[2020-10-28] MEDS: Morphine Sulfate 2 MG/ML CARTRIDGE IVPUSH ×4 (04:15→19:59)
[2020-10-28] MEDS: Lactated Ringers 1,000 ML 150 ML IVCONT ×3 (04:37→19:49)
[2020-10-28 06:30] LABS: MANUAL DIFF FLAG NO
[2020-10-28 06:42] LABS: Basophils Percent Auto 0.2 % (0-2); Eosinophils Absolute Auto 0.1 X10*3/uL (0.0-0.4); Eosinophils Percent Auto 0.8 % (0-4); Hematocrit 29.4 % (37-47); Hemoglobin 10.3 g/dl (12.0-16.0); Imm Gran Abs Auto 0.07 X10*3/uL (0.00-0.03); Imm Gran Pct Auto 1.2 % (0.0-0.4); Lymphocytes Absolute Auto 1.1 X10*3/uL (1.2-4.9); Lymphocytes Percent Auto 18.1 % (20-40); Mean Corpuscular Hemoglobin 33.9 pg (27.0-33.0); Mean Corpuscular Volume 96.7 fL (80-98); Mean Platelet Volume 8.6 fL (9.4-12.3); Monocytes Absolute Auto 0.4 X10*3/uL (0.1-1.2); Monocytes Percent Auto 6.5 % (2-11); Neutrophils Absolute Auto 4.4 X10*3/uL (2.0-8.3); Neutrophils Percent Auto 73.2 % (45-73); Red Blood Count 3.04 X10*6/uL (4.20-5.50); Red Cell Distribution Width 15.5 % (11.0-16.0)
[2020-10-28 06:44] LABS: Platelet Count 99 X10*3/uL (160-400)
[2020-10-28 07:30] LABS: Alanine Aminotransferase 16 U/L (0-31); Albumin Level 2.9 g/dL (3.5-5.0); Alkaline Phosphatase 51 U/L (39-117); Anion Gap 11 (12-20); Aspartate Amino Transferase 33 U/L (5-31); Bilirubin Total 0.6 mg/dL (0.0-1.0); Blood Urea Nitrogen 6 mg/dL (9-16); Calcium 7.4 mg/dL (8.4-10.2); Carbon Dioxide 24 mmol/L (22-29); Chloride 104 mmol/L (96-108); Creatinine Clr Calc Pharmacy 121.3; Estimated Glomerular Filt Rate > 60; Glucose Random 82 mg/dL (60-115); Magnesium 1.4 mg/dL (1.6-2.6); Potassium 2.9 mmol/L (3.3-5.1); Sodium 136 mmol/L (135-145); Total Protein 5.2 g/dL (6.5-8.0)
[2020-10-28] MEDS: Potassium Chloride/H20 10 MEQ/100 ML PIGGYBACK 100 MEQ IV ×4 (08:47→13:17)
[2020-10-28] MEDS: PHENobarbitaL 15 MG TABLET 45 MG PO ×2 (08:47→19:55)
[2020-10-28] MEDS: Lidocaine 4 % Patch ADH..PATCH 2 PATCH TRANSDERMA (08:47)
[2020-10-28] MEDS: Thiamine HCL 100 MG TABLET PO (08:48)
[2020-10-28] MEDS: Multivitamin TABLET 1 TAB PO (08:48)
[2020-10-28] MEDS: Folic Acid 1 MG TABLET PO (08:48)
[2020-10-28 09:20] LABS: HBS Num1 209.76 mIU/mL (0-7.99); HBsAGNum1 0.22 S/CO (0.00-0.99); Hepatitis B Surface Antigen Negative (Negative); ~Hepatitis B Surface Antibody REACTIVE (Nonreactive)
[2020-10-28 09:56] LABS: HBc Num1 0.08 S/CO (0.00-0.79); HIV AB/AG Nonreactive (Nonreactive); HIV Num 1 0.11 S/CO (0.00-0.99); Hepatitis B Core Antibody Nonreactive (Nonreactive); ~Hepatitis C Antibody Nonreactive (Nonreactive)
--- NOTE | 2020-10-28 12:52 | HO.PM.IMPN ---
Subjective Subjective Date of Service: 10/28/20 Interval History: abd pain improved, no N/V c/o back pain from her arthritis Physical Exam Vital Signs: Vital Signs: Last Vital Signs Temp 98.5 F 10/28/20 11:18 Pulse 103 H 10/28/20 11:18 Resp 18 10/28/20 11:18 BP 133/92 H 10/28/20 11:18 Pulse Ox 96 10/28/20 11:18 Body Mass Index 22.3 Gen: in no acute distress HEENT: sclera anicteric, moist mucus membranes Neck: supple Lungs: clear to auscultation bilaterally Heart: tachycardic, no murmurs Abd: soft, minimal tenderness, no rebound Ext: no edema Skin: warm/well-perfused Neuro: alert and oriented x3, no focal findings Psych: appropriate affect Objective Data Current Medications Generic Name Dose Route Start Last Admin Trade Name Freq PRN Reason Stop Dose Admin Acetaminophen 650 mg 10/26/20 18:18 Acetaminophen 325 Mg Tablet PO Q6H PRN Pain, Mild (Pain Scale 1-3) Celecoxib 100 mg 10/28/20 12:15 Celecoxib 100 Mg Capsule PO BID [facility] Clonidine HCl 0.1 mg 10/27/20 15:45 Clonidine Hcl 0.1 Mg Tablet PO TID PRN opioid withdrawal Protocol Enoxaparin Sodium 40 mg 10/26/20 19:00 10/27/20 20:35 Enoxaparin Sodium 40 Mg/0.4 Ml Syringe SUBCUT 40 mg Q24H [facility] Administration Folic Acid 1 mg 10/27/20 09:00 10/28/20 08:48 Folic Acid 1 Mg Tablet PO 1 mg DAILY [facility] Administration Gabapentin 300 mg 10/26/20 21:00 10/27/20 20:34 Gabapentin 300 Mg Capsule PO 300 mg BEDTIME [facility] Administration Hydroxyzine HCl 25 mg 10/26/20 21:01 10/28/20 01:59 Hydroxyzine Hcl 25 Mg Tablet PO 25 mg QID PRN Administration anxiety/restlessness Lactated Ringer's 1,000 mls @ 150 mls/hr 10/26/20 18:18 10/28/20 11:28 Lr IVCONT Not Given .Q6H40M [facility] Lidocaine 2 patch 10/27/20 09:00 10/28/20 08:47 Lidocaine 4 % Patch Adh..Patch TRANSDERMA 2 patch DAILY [facility] Administration Protocol Medication 1 each 10/26/20 17:00 No Benzodiazepines MISCELLANE DAILY [facility] Protocol Morphine Sulfate 2 mg 10/26/20 18:18 10/28/20 08:54 Morphine Sulfate 2 Mg/Ml Cartridge IVPUSH 2 mg Q4H PRN Administration Pain, Mild (Pain Scale 1-3) Multivitamins/Vitamin C 1 tab 10/27/20 09:00 10/28/20 08:48 Multivitamin Tablet PO 1 tab DAILY [facility] Administration Ondansetron HCl 4 mg 10/26/20 18:18 10/27/20 20:23 Ondansetron Hcl 4 Mg/2 Ml Vial IVPUSH 4 mg Q8H PRN Administration Nausea and Vomiting Oxycodone HCl 5 mg 10/26/20 18:18 10/28/20 11:58 Oxycodone Hcl Immed Release 5 Mg Tablet PO 5 mg Q4H PRN Administration pain Pharmacy Consult 1 each 10/26/20 16:38 Consult Rx Perform Med Rec MISCELLANE ONCE PRN Consult order Phenobarbital 45 mg 10/27/20 09:00 10/28/20 08:47 Phenobarbital 15 Mg Tablet PO 10/28/20 21:01 45 mg BID [facility] Administration Protocol Phenobarbital 15 mg 10/29/20 09:00 Phenobarbital 15 Mg Tablet PO 10/30/20 21:01 BID [facility] Protocol Phenobarbital 15 mg 10/31/20 09:00 Phenobarbital 15 Mg Tablet PO 11/01/20 09:01 DAILY [facility] Protocol Sertraline HCl 100 mg 10/26/20 21:00 10/27/20 20:34 Sertraline Hcl 100 Mg Tablet PO 100 mg BEDTIME [facility] Administration Sodium Chloride 3 ml 10/27/20 00:00 10/28/20 08:48 0.9 % Sodium Chloride Flush 3 Ml Syringe IVFLUSH Not Given QSHIFT [facility] Thiamine HCl 100 mg 10/27/20 09:00 10/28/20 08:48 Thiamine Hcl 100 Mg Tablet PO 100 mg DAILY [facility] Administration Labs CBC & Chem 7: 10/28/20 05:50 10/28/20 05:50 Labs: Laboratory Results - last 24 hr 10/28/20 10/28/20 10/28/20 05:50 05:50 05:50 WBC 6.0 RBC 3.04 L Hgb 10.3 L Hct 29.4 L MCV 96.7 MCH 33.9 H MCHC 35.0 RDW 15.5 Plt Count 99 L MPV 8.6 L Immature Gran % (Auto) 1.2 H Neut % (Auto) 73.2 H Lymph % (Auto) 18.1 L [place] % (Auto) 6.5 Eos % (Auto) 0.8 Baso % (Auto) 0.2 Lymph # (Auto) 1.1 L [place] # (Auto) 0.4 Eos # (Auto) 0.1 Baso # (Auto) 0.0 Abs Immat Gran (auto) 0.07 H Absolute Neuts (auto) 4.4 Absolute Nucleated RBC 0.000 Nucleated RBC % (auto) 0.0 Sodium 136 Potassium 2.9 L Chloride 104 Carbon Dioxide 24 Anion Gap 11 L BUN 6 L Creatinine 0.58 Estim Creat Clear Calc 121.3 Estimated GFR > 60 Random Glucose 82 Calcium 7.4 L Magnesium 1.4 L* Total Bilirubin 0.6 AST 33 H D ALT 16 Alkaline Phosphatase 51 D Total Protein 5.2 L D Albumin 2.9 L D Hep Bs Antigen Negative Hep Bs Antibody REACTIVE Hep B Core Total Ab Nonreactive Hepatitis C Ab (EIA) Nonreactive HIV 1&2 Ab/P24 Ag 4thGn Nonreactive Assessment and Plan (1) Alcohol withdrawal: Status: Acute (2) Alcoholic pancreatitis: Status: Acute (3) Opioid withdrawal: Status: Acute Assessment and Plan: hospital d#3 30yo F with hx alcohol and opioid/kratom abuse presenting with worsening abd pain/nausea, admitted for EtOH withdrawal and suspected pancreatitis # hypoK - replete, monitor # hypoMg - replete, monitor # alcohol withdrawal - phenobarbital taper, vitamins, counseling # acute alcoholic pancreatitis - still suspected despite negative CT findings (done without contrast), IV fluid hydration, EtOH cessation, prn morphine, advance diet to clears today # opioid withdrawal from kratom - prn clonidine # thrombocytopenia, mild - likely EtOH effect, monitor CBC # inflammatory arthritis/sacroiliitis - will need outpt rheumatology. will trial celecoxib # VTE ppx - LMWH
[2020-10-28] MEDS: Celecoxib 100 MG CAPSULE PO (13:17)
[2020-10-28] MEDS: Diphenoxylate/Atrop 2.5/0.025 TABLET 1 TAB PO (13:38)
[2020-10-28] MEDS: Magnesium Sulfate/H2O 2 GM/50 ML PIGGYBACK IV (14:34)
[2020-10-28] MEDS: cloNIDine HCL 0.1 MG TABLET PO ×2 (14:37→19:57)
--- NOTE | 2020-10-28 15:42 | PM.EVENT ---
Event Note Date of Service: 10/28/20 Event Note: Addiction consult follow up Patient seen today and in room 353. Awake, alert, pleasant and engaged in interview. Able to gather further substance use history Patient reports that she has been taking Kratom for about 4 years (following the of her daughter) She had previously been prescribed Tramadol and was taking it around the clock , but she decided to self taper due to concern of developing dependance.
--- NOTE | 2020-10-28 15:55 | HO.ADDICTCON ---
History of Present Illness Date of Service: 10/28/2020 Chief Complaint: Abdominal pain Reason for Consult: follow up Requesting physician: Valdemar Parker Discussed with referring provider: Yes Sources of Information: patient interviewed and chart reviewed HPI Narrative: Patient seen today in follow up. Obtained substance use history As previously reported she has been taking Kratom for the past 4 years (following the of her daughter). At the most she had been taking 2 teaspoons every 2 hours. She started to decrease amount about a year ago. Prior to this (5 years ago) she was being prescribed Tramadol by her rhematologist, and she states she was taking it around the clock for about 9 months and she decided to self taper as she didn't want to become addicted . She denies any other opiod use. She noted that once she started ot decrease amount of Kratom, she began to experience withdrawal sx including restless legs, anxiety. In January of 2020 she began to drink in the venings to help with her sx and more specifically to help with sleep. In October of 2020 is when her alcohol consumption increased consistently and she was drinking two bottles of wine every night to be able to fall asleep. She went to [facility] in September seeking treatment for her alcohol use and was prescribed Naltrexone. Since she was still taking Kratom, she precipitated withdrawal and became very ill. She has not taken Naltrexone since then. She is currently recieving Morphine or oxycodone PRN for pain management here, and is verbalizing that she wishes to use non opioid medications to manage pain. Past Psychiatric History: not reviewed Review of Systems Constitutional: Reports difficulty sleeping and Reports malaise Gastrointestinal: Denies diarrhea, Denies nausea and Denies vomiting Musculoskeletal: Reports back pain and Reports arthralgias Psychiatric: Reports anxiety Diagnostics Vital Signs (24Hr): Vital Signs - 24 hr 10/27/20 16:10 10/27/20 20:22 10/27/20 20:23 Temperature 99.1 F Pulse Rate 105 H 110 H 122 H Respiratory Rate 14 18 16 Blood Pressure 131/86 141/96 H 143/91 H Pulse Oximetry 96 96 99 10/27/20 23:26 10/28/20 03:40 10/28/20 07:39 Temperature 98.2 F 98.8 F 98.9 F Pulse Rate 99 106 H 104 H Respiratory Rate 20 18 18 Blood Pressure 121/88 134/83 130/92 H Pulse Oximetry 96 97 95 10/28/20 11:18 10/28/20 14:37 10/28/20 14:43 Temperature 98.5 F Pulse Rate 103 H 103 H Respiratory Rate 18 16 Blood Pressure 133/92 H 133/92 H Pulse Oximetry 96 10/28/20 15:30 Temperature 98.7 F Pulse Rate 102 H Respiratory Rate 17 Blood Pressure 133/93 H Pulse Oximetry 97 Body Mass Index 22.3 Labs Results: 10/28/20 05:50 10/28/20 05:50 Labs: Laboratory Results - last 48 hr 10/26/20 10/26/20 10/26/20 15:32 15:32 20:36 WBC RBC Hgb Hct MCV MCH MCHC RDW Plt Count MPV Immature Gran % (Auto) Neut % (Auto) Lymph % (Auto) Douglas % (Auto) Eos % (Auto) Baso % (Auto) Lymph # (Auto) Douglas # (Auto) Eos # (Auto) Baso # (Auto) Abs Immat Gran (auto) Absolute Neuts (auto) Absolute Nucleated RBC Nucleated RBC % (auto) Sodium 144 Potassium 3.8 Chloride 105 Carbon Dioxide 24 Anion Gap 19 BUN 5 L Creatinine 0.71 Estim Creat Clear Calc 99.1 Estimated GFR > 60 Random Glucose 111 Calcium 8.7 Magnesium 2.2 Total Bilirubin 0.5 Direct Bilirubin 0.2 AST 74 H ALT 27 Alkaline Phosphatase 67 Total Protein 8.0 Albumin 4.3 Lipase 216 H Ethyl Alcohol 251 COVID-19 (BETY) Negative COVID-19 Clin Com See Note Hep Bs Antigen Hep Bs Antibody Hep B Core Total Ab Hepatitis C Ab (EIA) HIV 1&2 Ab/P24 Ag 4thGn 10/27/20 10/27/20 10/28/20 07:12 07:12 05:50 WBC 6.4 6.0 RBC 3.14 L D 3.04 L Hgb 10.6 L D 10.3 L Hct 30.7 L D 29.4 L MCV 97.8 96.7 MCH 33.8 H 33.9 H MCHC 34.5 35.0 RDW 16.0 15.5 Plt Count 106 L D 99 L MPV 8.4 L 8.6 L Immature Gran % (Auto) 0.9 H 1.2 H Neut % (Auto) 72.9 73.2 H Lymph % (Auto) 16.4 L 18.1 L Douglas % (Auto) 8.8 6.5 Eos % (Auto) 0.8 0.8 Baso % (Auto) 0.2 0.2 Lymph # (Auto) 1.1 L 1.1 L Douglas # (Auto) 0.6 0.4 Eos # (Auto) 0.1 0.1 Baso # (Auto) 0.0 0.0 Abs Immat Gran (auto) 0.06 H 0.07 H Absolute Neuts (auto) 4.7 4.4 Absolute Nucleated RBC 0.000 0.000 Nucleated RBC % (auto) 0.0 0.0 Sodium 140 Potassium 3.3 Chloride 106 Carbon Dioxide 25 Anion Gap 12 BUN 9 D Creatinine 0.67 Estim Creat Clear Calc 105.0 Estimated GFR > 60 Random Glucose 95 Calcium 7.4 L D Magnesium Total Bilirubin Direct Bilirubin AST ALT Alkaline Phosphatase Total Protein Albumin Lipase 657 H Ethyl Alcohol COVID-19 (BETY) COVID-19 Clin Com Hep Bs Antigen Hep Bs Antibody Hep B Core Total Ab Hepatitis C Ab (EIA) HIV 1&2 Ab/P24 Ag 4thGn 10/28/20 10/28/20 05:50 05:50 WBC RBC Hgb Hct MCV MCH MCHC RDW Plt Count MPV Immature Gran % (Auto) Neut % (Auto) Lymph % (Auto) Douglas % (Auto) Eos % (Auto) Baso % (Auto) Lymph # (Auto) Douglas # (Auto) Eos # (Auto) Baso # (Auto) Abs Immat Gran (auto) Absolute Neuts (auto) Absolute Nucleated RBC Nucleated RBC % (auto) Sodium 136 Potassium 2.9 L Chloride 104 Carbon Dioxide 24 Anion Gap 11 L BUN 6 L Creatinine 0.58 Estim Creat Clear Calc 121.3 Estimated GFR > 60 Random Glucose 82 Calcium 7.4 L Magnesium 1.4 L* Total Bilirubin 0.6 Direct Bilirubin AST 33 H D ALT 16 Alkaline Phosphatase 51 D Total Protein 5.2 L D Albumin 2.9 L D Lipase Ethyl Alcohol COVID-19 (BETY) COVID-19 Clin Com Hep Bs Antigen Negative Hep Bs Antibody REACTIVE Hep B Core Total Ab Nonreactive Hepatitis C Ab (EIA) Nonreactive HIV 1&2 Ab/P24 Ag 4thGn Nonreactive Imaging Radiology Impressions: ITS Impressions Abdomen CT 10/26/20 19:56 IMPRESSION: Diffuse fatty infiltration of the liver but no focal hepatic lesion or biliary ductal dilatation. Layering sludge or hyperdense bowel in the dependent portion of the otherwise unremarkable gallbladder. I do not appreciate any pancreatic ductal dilatation or peripancreatic inflammatory changes/fluid at this time. Mental Status Exam Mental Status Exam Patient Appearance: Appropriate Patient Orientation: Person, Place, Time and Situation Level of Consciousness: Awake, Appropriate and Alert Patient Behavior: Appropriate Mood Description: Appropriate Affect Description: Appropriate Patient Cognition Impaired: No Ability to Follow Directions: Excellent Speech Pattern: Clear Hallucinations: None Delusions: Not Present Thought Process: Intact and Goal Oriented Thought Content: positive for Intact Depressive Symptoms: Increased Anxiety, Difficulty Sleeping, Muscle Pain, Unhappiness and Back Pain Judgement: Good Medications Medications Current Medications Generic Name Dose Route Start Last Admin Trade Name Freq PRN Reason Stop Dose Admin Acetaminophen 650 mg 10/26/20 18:18 Acetaminophen 325 Mg Tablet PO Q6H PRN Pain, Mild (Pain Scale 1-3) Celecoxib 100 mg 10/28/20 12:15 10/28/20 13:17 Celecoxib 100 Mg Capsule PO 100 mg BID [facility] Administration Clonidine HCl 0.1 mg 10/27/20 15:45 10/28/20 14:37 Clonidine Hcl 0.1 Mg Tablet PO 0.1 mg TID PRN Administration opioid withdrawal Protocol Diphenoxylate HCl/Atropine 1 tab 10/28/20 13:16 10/28/20 13:38 Diphenoxylate/Atrop 2.5/0.025 Tablet PO 1 tab QID PRN Administration diarrhea Enoxaparin Sodium 40 mg 10/26/20 19:00 10/27/20 20:35 Enoxaparin Sodium 40 Mg/0.4 Ml Syringe SUBCUT 40 mg Q24H [facility] Administration Folic Acid 1 mg 10/27/20 09:00 10/28/20 08:48 Folic Acid 1 Mg Tablet PO 1 mg DAILY [facility] Administration Gabapentin 300 mg 10/26/20 21:00 10/27/20 20:34 Gabapentin 300 Mg Capsule PO 300 mg BEDTIME [facility] Administration Hydroxyzine HCl 25 mg 10/26/20 21:01 10/28/20 01:59 Hydroxyzine Hcl 25 Mg Tablet PO 25 mg QID PRN Administration anxiety/restlessness Lactated Ringer's 1,000 mls @ 150 mls/hr 10/26/20 18:18 10/28/20 11:28 Lr IVCONT Not Given .Q6H40M [facility] Lidocaine 2 patch 10/27/20 09:00 10/28/20 08:47 Lidocaine 4 % Patch Adh..Patch TRANSDERMA 2 patch DAILY [facility] Administration Protocol Medication 1 each 10/26/20 17:00 No Benzodiazepines MISCELLANE DAILY [facility] Protocol Morphine Sulfate 2 mg 10/26/20 18:18 10/28/20 14:43 Morphine Sulfate 2 Mg/Ml Cartridge IVPUSH 2 mg Q4H PRN Administration Pain, Mild (Pain Scale 1-3) Multivitamins/Vitamin C 1 tab 10/27/20 09:00 10/28/20 08:48 Multivitamin Tablet PO 1 tab DAILY [facility] Administration Ondansetron HCl 4 mg 10/26/20 18:18 10/27/20 20:23 Ondansetron Hcl 4 Mg/2 Ml Vial IVPUSH 4 mg Q8H PRN Administration Nausea and Vomiting Oxycodone HCl 5 mg 10/26/20 18:18 10/28/20 11:58 Oxycodone Hcl Immed Release 5 Mg Tablet PO 5 mg Q4H PRN Administration pain Pharmacy Consult 1 each 10/26/20 16:38 Consult Rx Perform Med Rec MISCELLANE ONCE PRN Consult order Phenobarbital 45 mg 10/27/20 09:00 10/28/20 08:47 Phenobarbital 15 Mg Tablet PO 10/28/20 21:01 45 mg BID [facility] Administration Protocol Phenobarbital 15 mg 10/29/20 09:00 Phenobarbital 15 Mg Tablet PO 10/30/20 21:01 BID [facility] Protocol Phenobarbital 15 mg 10/31/20 09:00 Phenobarbital 15 Mg Tablet PO 11/01/20 09:01 DAILY [facility] Protocol Sertraline HCl 100 mg 10/26/20 21:00 10/27/20 20:34 Sertraline Hcl 100 Mg Tablet PO 100 mg BEDTIME [facility] Administration Sodium Chloride 3 ml 10/27/20 00:00 10/28/20 15:39 0.9 % Sodium Chloride Flush 3 Ml Syringe IVFLUSH Not Given QSHIFT [facility] Thiamine HCl 100 mg 10/27/20 09:00 10/28/20 08:48 Thiamine Hcl 100 Mg Tablet PO 100 mg DAILY [facility] Administration Allergies Allergies Allergy/AdvReac Type Severity Reaction Status Date / Time cefuroxime Allergy Shortness Verified 10/26/20 15:19 of Breath Assessment & Plan Assessment & Plan (1) Opioid withdrawal: Status: Acute Code(s): F11.23 - Opioid dependence with withdrawal Recommendations: Encouraged patient to request clonidine as needed for withdrawal sx Patient does not plan to restart Kratom following discharge, but very concerned about her pain and how it will be managed, Per MD note, rehumatology will be arranged at discharge and she will be started on Celecoxib now (2) Alcohol withdrawal: Qualifiers: Complication of substance-induced condition: uncomplicated Qualified Code(s): F10.230 - Alcohol dependence with withdrawal, uncomplicated Status: Acute Code(s): F10.239 - Alcohol dependence with withdrawal, unspecified Recommendations: patient nervous about when to restart Naltrexone based on previous experience. Reassured patient that we would make clear plan about when to start (RN to follow up in AM) Greater than 50% of the session was spent on counseling and/or coordination of care [facility] Social History Social History (Updated 10/28/20 @ 16:35 by Zena Anna CNP) Household Members: Family Housing: House Alcohol intake: current Alcohol intake frequency: 3 or more drinks per day Alcohol type: wine Smoking Status: Unknown if ever smoked Substance Use Type: Other Substance Use Type Other:: Kratom Substance Use Frequency: Daily Last Used Substance: Days (ago) Currently Displaying Signs/Symptoms of Drug Intoxication Withdrawal: Yes service: No Current occupational status: unemployed
--- NOTE | 2020-10-28 16:26 | MHC.CM.PN ---
CM MET W/PT AT 4PM PER HER REQUEST, PT WANTED TO DISCUSS OUTPT TX PROGRAMS PER RECOVERY NURSE SHE WILL MEET W/PT IN AM, DIONE WAS ABLE TO GIVE PT SOME INFO REGARDING LOCAL PROGRAMS HOWEVER PT WILL NEED TO SPEAK W/RECOVERY NURSE WHO WILL HELP PT W/PLACEMENT HOWEVER PT CURRENTLY HAS NO INSURANCE SO CM HAS SENT REFERRAL TO [employer]CIAL SERVICES TO HELP W/[facility]. CM WILL CONT TO FOLLOW PT FOR D/C NEEDS.
[2020-10-28] MEDS: Enoxaparin Sodium 40 MG/0.4 ML SYRINGE SUBCUT (18:42)
[2020-10-28] MEDS: Sertraline HCL 100 MG TABLET PO (19:56)
[2020-10-28] MEDS: Gabapentin 300 MG CAPSULE PO (19:57)
[2020-10-29] VITALS (8 sets, daily range): BP systolic 126–142; BP diastolic 69–98; PULSE 78–98; RESP 16–19; TEMP 35.7–37; O2SAT 96–100
[2020-10-29] MEDS: Lactated Ringers 1,000 ML 150 ML IVCONT ×2 (02:49→10:09)
[2020-10-29] MEDS: Morphine Sulfate 2 MG/ML CARTRIDGE IVPUSH ×3 (05:30→22:08)
[2020-10-29 06:25] LABS: MANUAL DIFF FLAG NO
[2020-10-29 06:33] LABS: Basophils Percent Auto 0.4 % (0-2); Eosinophils Absolute Auto 0.1 X10*3/uL (0.0-0.4); Eosinophils Percent Auto 1.2 % (0-4); Hematocrit 27.6 % (37-47); Imm Gran Abs Auto 0.05 X10*3/uL (0.00-0.03); Imm Gran Pct Auto 0.9 % (0.0-0.4); Lymphocytes Absolute Auto 1.1 X10*3/uL (1.2-4.9); Lymphocytes Percent Auto 18.6 % (20-40); Mean Corpuscular HGB Conc 36.2 g/dl (31.0-35.0); Mean Corpuscular Hemoglobin 34.8 pg (27.0-33.0); Mean Corpuscular Volume 96.2 fL (80-98); Mean Platelet Volume 8.9 fL (9.4-12.3); Monocytes Absolute Auto 0.5 X10*3/uL (0.1-1.2); Monocytes Percent Auto 9.1 % (2-11); Neutrophils Percent Auto 69.8 % (45-73); Red Blood Count 2.87 X10*6/uL (4.20-5.50); Red Cell Distribution Width 16.1 % (11.0-16.0); White Blood Count 5.7 X10*3/uL (4.8-10.8)
[2020-10-29 07:06] LABS: Anion Gap 13 (12-20); Blood Urea Nitrogen 3 mg/dL (9-16); Calcium 7.7 mg/dL (8.4-10.2); Carbon Dioxide 27 mmol/L (22-29); Chloride 101 mmol/L (96-108); Creatinine Clr Calc Pharmacy 130.3; Estimated Glomerular Filt Rate > 60; Glucose Random 80 mg/dL (60-115); Magnesium 1.9 mg/dL (1.6-2.6); Potassium 3.2 mmol/L (3.3-5.1); Sodium 138 mmol/L (135-145)
[2020-10-29 07:11] LABS: Platelet Count 96 X10*3/uL (160-400)
[2020-10-29] MEDS: Diphenoxylate/Atrop 2.5/0.025 TABLET 1 TAB PO ×3 (07:53→17:17)
[2020-10-29] MEDS: oxyCODONE HCl Immed Release 5 MG TABLET PO ×2 (07:53→18:44)
[2020-10-29] MEDS: Celecoxib 100 MG CAPSULE PO ×2 (07:53→20:16)
[2020-10-29] MEDS: Lidocaine 4 % Patch ADH..PATCH 2 PATCH TRANSDERMA (07:53)
[2020-10-29] MEDS: Folic Acid 1 MG TABLET PO (07:54)
[2020-10-29] MEDS: Thiamine HCL 100 MG TABLET PO (07:54)
[2020-10-29] MEDS: PHENobarbitaL 15 MG TABLET PO ×2 (07:54→20:17)
[2020-10-29] MEDS: Multivitamin TABLET 1 TAB PO (07:54)
[2020-10-29] MEDS: Potassium Chloride ER 20 MEQ TAB.ER.PRT 40 MEQ PO (09:23)
--- NOTE | 2020-10-29 11:05 | MHC.RECOVRN ---
T/w met with pt to follow up regarding medication for alcohol use disorder initiation. Pt had spoken with Zena Anna APRN, and is interested in starting naltrexone. Pt concerned about precipitated withdrawal, which has happened in the past due to kratom use. Pt is receiving morphine and oxycodone for pain while admitted. Pt was educated regarding appropriate time to initiate naltrexone, minimum 3-7 days after last short acting opioid dose. Pt comfortable with the decision to pursue naltrexone. Pt was provided with education and written material about medication for alcohol use disorder, M[facility], IOP, recovery coaches, among other available recovery services. Pt has intake appointment with the [facility] on 11/04 at 1:15PM. CM aware.
--- NOTE | 2020-10-29 11:29 | MHC.CM.PN ---
PATIENT HAS A FOLLOW UP APPOINTMENT WITH [facility] [place] [place] [facility] ON 11/04/20 @ 6200 PATIENT MADE AWARE. PLANS WERE TO TRY TO GET PATIENT SEEN ON MONDAY; HOWEVER, THERE ARE NO OPENINGS ON THAT DAY.
[2020-10-29] MEDS: cloNIDine HCL 0.1 MG TABLET PO (12:08)
[2020-10-29] MEDS: Calcium Carbonate 750 MG TAB.CHEW PO (15:40)
--- NOTE | 2020-10-29 15:44 | P.PNIM_ITS ---
Subjective Subjective Date of Service: 10/29/20 Interval History: feeling better, no N/V, abd pain improved Physical Exam Vital Signs: Vital Signs: Last Vital Signs Temp 96.3 F L 10/29/20 15:36 Pulse 86 10/29/20 15:36 Resp 16 10/29/20 15:36 BP 132/94 H 10/29/20 15:36 Pulse Ox 99 10/29/20 15:36 Body Mass Index 22.3 Gen: in no acute distress HEENT: sclera anicteric, moist mucus membranes Neck: supple Lungs: clear to auscultation bilaterally Heart: tachycardic, no murmurs Abd: soft, minimal tenderness, no rebound Ext: no edema Skin: warm/well-perfused Neuro: alert and oriented x3, no focal findings Psych: appropriate affect Objective Data Current Medications Generic Name Dose Route Start Last Admin Trade Name Freq PRN Reason Stop Dose Admin Acetaminophen 650 mg 10/26/20 18:18 Acetaminophen 325 Mg Tablet PO Q6H PRN Pain, Mild (Pain Scale 1-3) Calcium Carbonate 750 mg 10/29/20 15:24 10/29/20 15:40 Calcium Carbonate 750 Mg Tab.Chew PO 750 mg Q4H PRN Administration dyspepsia Celecoxib 100 mg 10/28/20 12:15 10/29/20 07:53 Celecoxib 100 Mg Capsule PO 100 mg BID [facility] Administration Clonidine HCl 0.1 mg 10/27/20 15:45 10/29/20 12:08 Clonidine Hcl 0.1 Mg Tablet PO 0.1 mg TID PRN Administration opioid withdrawal Protocol Diphenoxylate HCl/Atropine 1 tab 10/28/20 13:16 10/29/20 12:08 Diphenoxylate/Atrop 2.5/0.025 Tablet PO 1 tab QID PRN Administration diarrhea Enoxaparin Sodium 40 mg 10/26/20 19:00 10/28/20 18:42 Enoxaparin Sodium 40 Mg/0.4 Ml Syringe SUBCUT 40 mg Q24H [facility] Administration Folic Acid 1 mg 10/27/20 09:00 10/29/20 07:54 Folic Acid 1 Mg Tablet PO 1 mg DAILY [facility] Administration Gabapentin 300 mg 10/26/20 21:00 10/28/20 19:57 Gabapentin 300 Mg Capsule PO 300 mg BEDTIME [facility] Administration Hydroxyzine HCl 25 mg 10/26/20 21:01 10/28/20 22:50 Hydroxyzine Hcl 25 Mg Tablet PO 25 mg QID PRN Administration anxiety/restlessness Lactated Ringer's 1,000 mls @ 150 mls/hr 10/26/20 18:18 10/29/20 10:09 Lr IVCONT 150 mls/hr .Q6H40M [facility] Administration Lidocaine 2 patch 10/27/20 09:00 10/29/20 07:53 Lidocaine 4 % Patch Adh..Patch TRANSDERMA 2 patch DAILY [facility] Administration Protocol Medication 1 each 10/26/20 17:00 No Benzodiazepines MISCELLANE DAILY [facility] Protocol Morphine Sulfate 2 mg 10/26/20 18:18 10/29/20 13:46 Morphine Sulfate 2 Mg/Ml Cartridge IVPUSH 2 mg Q4H PRN Administration Pain, Mild (Pain Scale 1-3) Multivitamins/Vitamin C 1 tab 10/27/20 09:00 10/29/20 07:54 Multivitamin Tablet PO 1 tab DAILY [facility] Administration Ondansetron HCl 4 mg 10/26/20 18:18 10/27/20 20:23 Ondansetron Hcl 4 Mg/2 Ml Vial IVPUSH 4 mg Q8H PRN Administration Nausea and Vomiting Oxycodone HCl 5 mg 10/26/20 18:18 10/29/20 07:53 Oxycodone Hcl Immed Release 5 Mg Tablet PO 5 mg Q4H PRN Administration pain Pharmacy Consult 1 each 10/26/20 16:38 Consult Rx Perform Med Rec MISCELLANE ONCE PRN Consult order Phenobarbital 15 mg 10/29/20 09:00 10/29/20 07:54 Phenobarbital 15 Mg Tablet PO 10/30/20 21:01 15 mg BID [facility] Administration Protocol Phenobarbital 15 mg 10/31/20 09:00 Phenobarbital 15 Mg Tablet PO 11/01/20 09:01 DAILY [facility] Protocol Sertraline HCl 100 mg 10/26/20 21:00 10/28/20 19:56 Sertraline Hcl 100 Mg Tablet PO 100 mg BEDTIME [facility] Administration Sodium Chloride 3 ml 10/27/20 00:00 10/29/20 07:54 0.9 % Sodium Chloride Flush 3 Ml Syringe IVFLUSH Not Given QSHIFT [facility] Thiamine HCl 100 mg 10/27/20 09:00 10/29/20 07:54 Thiamine Hcl 100 Mg Tablet PO 100 mg DAILY [facility] Administration Labs CBC & Chem 7: 10/29/20 06:05 10/29/20 06:05 Labs: Laboratory Results - last 24 hr 10/29/20 10/29/20 06:05 06:05 WBC 5.7 RBC 2.87 L Hgb 10.0 L Hct 27.6 L MCV 96.2 MCH 34.8 H MCHC 36.2 H RDW 16.1 H Plt Count 96 L MPV 8.9 L Immature Gran % (Auto) 0.9 H Neut % (Auto) 69.8 Lymph % (Auto) 18.6 L [place] % (Auto) 9.1 Eos % (Auto) 1.2 Baso % (Auto) 0.4 Lymph # (Auto) 1.1 L [place] # (Auto) 0.5 Eos # (Auto) 0.1 Baso # (Auto) 0.0 Abs Immat Gran (auto) 0.05 H Absolute Neuts (auto) 4.0 Absolute Nucleated RBC 0.000 Nucleated RBC % (auto) 0.0 Sodium 138 Potassium 3.2 L Chloride 101 Carbon Dioxide 27 Anion Gap 13 BUN 3 L Creatinine 0.54 Estim Creat Clear Calc 130.3 Estimated GFR > 60 Random Glucose 80 Calcium 7.7 L Magnesium 1.9 Assessment and Plan (1) Alcohol withdrawal: Status: Acute (2) Alcoholic pancreatitis: Status: Acute (3) Opioid withdrawal: Status: Acute Assessment and Plan: hospital d#4 30yo F with hx alcohol and opioid/kratom abuse presenting with worsening abd pain/nausea, admitted for EtOH withdrawal and suspected pancreatitis # hypoK - replete, monitor # hypoMg - repleted # alcohol withdrawal - phenobarbital taper, vitamins, counseling # acute alcoholic pancreatitis - IV fluid hydration, EtOH cessation, prn morphine, advance diet to full liquids today # opioid withdrawal from kratom - prn clonidine # thrombocytopenia, mild - likely EtOH effect, monitor CBC # inflammatory arthritis/sacroiliitis - will need outpt rheumatology. will trial celecoxib # VTE ppx - LMWH
[2020-10-29] MEDS: Acetaminophen 325 MG TABLET 650 MG PO (17:17)
[2020-10-29] MEDS: Enoxaparin Sodium 40 MG/0.4 ML SYRINGE SUBCUT (18:40)
--- NOTE | 2020-10-29 18:46 | PC.NURSE ---
Patient c/o upper and lower abd pain, PO pain meds effective. Patient c/o diarrhea; patient reports relief with Lomotil. Scoring low of CIWA.
[2020-10-29] MEDS: Sertraline HCL 100 MG TABLET PO (20:17)
[2020-10-29] MEDS: hydrOXYzine HCL 25 MG TABLET PO (20:17)
[2020-10-29] MEDS: Gabapentin 300 MG CAPSULE PO (20:18)
[2020-10-29] MEDS: 0.9 % Sodium Chloride Flush 3 ML SYRINGE IVFLUSH (20:22)
[2020-10-30] MEDS: oxyCODONE HCl Immed Release 5 MG TABLET PO ×3 (00:53→14:00)
[2020-10-30] MEDS: Diphenoxylate/Atrop 2.5/0.025 TABLET 1 TAB PO ×2 (00:56→11:26)
[2020-10-30 04:00] VITALS: BP 143/95; PULSE 85; RESP 16; TEMP 36.7; O2SAT 100
[2020-10-30 06:14] LABS: MANUAL DIFF FLAG NO
[2020-10-30 06:38] LABS: Basophils Percent Auto 0.6 % (0-2); Eosinophils Absolute Auto 0.1 X10*3/uL (0.0-0.4); Eosinophils Percent Auto 1.9 % (0-4); Hematocrit 28.7 % (37-47); Hemoglobin 10.4 g/dl (12.0-16.0); Imm Gran Abs Auto 0.06 X10*3/uL (0.00-0.03); Imm Gran Pct Auto 1.2 % (0.0-0.4); Lymphocytes Absolute Auto 1.2 X10*3/uL (1.2-4.9); Lymphocytes Percent Auto 24.2 % (20-40); Mean Corpuscular HGB Conc 36.2 g/dl (31.0-35.0); Mean Corpuscular Hemoglobin 34.9 pg (27.0-33.0); Mean Corpuscular Volume 96.3 fL (80-98); Mean Platelet Volume 9.1 fL (9.4-12.3); Monocytes Absolute Auto 0.6 X10*3/uL (0.1-1.2); Monocytes Percent Auto 12.4 % (2-11); Neutrophils Absolute Auto 2.9 X10*3/uL (2.0-8.3); Neutrophils Percent Auto 59.7 % (45-73); Platelet Count 126 X10*3/uL (160-400); Red Blood Count 2.98 X10*6/uL (4.20-5.50); Red Cell Distribution Width 16.6 % (11.0-16.0); White Blood Count 4.8 X10*3/uL (4.8-10.8)
[2020-10-30 07:13] LABS: Anion Gap 14 (12-20); Blood Urea Nitrogen 3 mg/dL (9-16); Calcium 8.1 mg/dL (8.4-10.2); Carbon Dioxide 27 mmol/L (22-29); Chloride 104 mmol/L (96-108); Creatinine Clr Calc Pharmacy 119.3; Estimated Glomerular Filt Rate > 60; Glucose Random 82 mg/dL (60-115); Potassium 3.6 mmol/L (3.3-5.1); Sodium 141 mmol/L (135-145)
[2020-10-30 08:00] VITALS: BP 135/93; PULSE 74; RESP 16; TEMP 36.6; O2SAT 99
[2020-10-30] MEDS: Lidocaine 4 % Patch ADH..PATCH 2 PATCH TRANSDERMA (08:45)
[2020-10-30] MEDS: Multivitamin TABLET 1 TAB PO (08:46)
[2020-10-30] MEDS: Celecoxib 100 MG CAPSULE PO (08:47)
[2020-10-30] MEDS: PHENobarbitaL 15 MG TABLET PO (08:47)
[2020-10-30] MEDS: Thiamine HCL 100 MG TABLET PO (08:47)
[2020-10-30] MEDS: Folic Acid 1 MG TABLET PO (08:47)
[2020-10-30] MEDS: 0.9 % Sodium Chloride Flush 3 ML SYRINGE IVFLUSH (08:48)
[2020-10-30] MEDS: ondansetron HCL 4 MG/2 ML VIAL IVPUSH (11:26)
[2020-10-30 12:00] VITALS: BP 140/99; PULSE 83; RESP 16; TEMP 36.4; O2SAT 100
--- NOTE | 2020-10-30 12:52 | P.EN_ITS ---
Event Note Date of Service: 10/30/20 Event Note: Addiction follow up note: Patient to discharged today Concerned about leaving hospital without medication for AUD. Discussed Campral as an option given that she has been taking Oxycodone and Naltrexone is not an option at this time. Educated regarding Campral, dosing times, side effects and goals of treatment. Plan: -agreed to start Campral 666mg TID at discharge -appt scheduled at [facility] next week
--- NOTE | 2020-10-30 13:05 | MHC.RECOVRN ---
T/w met with pt after discussion with Zena Anna APRN, who informed t/w that pt would like to take campral instead of naltrexone. Pt had been prescribed campral in the past but was unable to have prescription filled due to lack of insurance and cost. Pt has active insurance at this time and campral prescription at [facility] in [place] has a $0 co pay. Pt aware and will warehouse order picker prescription upon d/c. Pt aware of follow up appt at the [facility] on 11/04 at 1:15PM.
--- NOTE | 2020-10-30 13:32 | MHC.CM.PN ---
PER COMMUNICATIONS WITH FINANCIAL COUNSELOR, REQUESTED NON-FDC FORM WILL BE BROUGHT TO PATIENT'S ROOM. )[facility] FORM NCP-1), PATIENT IS REQUESTING THIS COPY FOR HER SIGNATURE
--- NOTE | 2020-10-30 13:46 | PM.DS ---
DS: Providers Provider Date of Service: 10/30/20 Date of admission: 10/26/20 18:18 Primary care physician: Júnior Kilgore MD Consults: 10/26/20 18:18 Consult to Care Team Routine Comment: Reason for consultation: alcohol abuse 10/27/20 08:50 Addiction Medicine Routine Consulting Provider: Zena Anna Reason for consultation: EtOH abuse x 6 mo, also use of kratom DS: Diagnosis Discharge Diagnosis (1) Alcohol withdrawal: Status: Acute (2) Alcoholic pancreatitis: Status: Acute (3) Opioid withdrawal: Status: Acute (4) Hypokalemia: Status: Acute (5) Hypomagnesemia: Status: Acute (6) Thrombocytopenia: Status: Acute DS: Medications Discharge Medications Home Medications: Home Medications Medication Instructions Recorded Confirmed gabapentin 3 cap PO BEDTIME 10/26/20 10/26/20 sertraline 1 tab PO BEDTIME 10/26/20 10/26/20 Previous Rx's Medication Instructions Recorded acamprosate 666 mg PO TID #180 tab 10/30/20 celecoxib 100 mg PO BID #60 cap 10/30/20 folic acid 1 mg PO DAILY #30 tab 10/30/20 lidocaine [Lidocaine Pain Relief] 2 patch TRANSDERMAL DAILY #60 ea 10/30/20 thiamine mononitrate (vit B1) 100 mg PO DAILY #30 tab 10/30/20 DS: Summary Hospital Course Hospital Course: From the history and physical by the admitting hospitalist, Dara Chaparro, 10/26/20: 60-year-old woman with history of heavy alcohol drinking. She reports she drinks at least 2 bottles of wine and has been doing this consistently for over the past 6 months. She also is opiate dependent and reports that she takes it over the counter, natural opiate for her back pain. She reported that she started having some vomiting over the last 3 days and had her last drink of alcohol this morning. She reported that several weeks ago, she was started on naltrexone for opiate abuse and since then reports that her alcohol withdrawals and pain have been worse. In the ER, her lipase was noted to be elevated at 216. She does have some abdominal pain. Her pulse was noted to be elevated at 129. She was started on phenobarbital while in the ER. Given folic acid, lorazepam, thiamine, Protonix, Zofran. She will be admitted for further management and treatment of acute pancreatitis secondary to alcohol abuse. The patient was admitted to the medical/surgical floor and was treated with phenobarbital taper for alcohol withdrawal. She was also started on thiamine and folate supplementation. Pancreatitis was treated with NPO status, IV fluid hydration, and IV morphine. As her symptoms improved, her diet was advanced. Opioid withdrawal from kratom abuse was treated with clonidine. Potassium and magnesium were repleted. She had mild thrombocytopenia attributed to myelosuppression from alcohol; this improved during her hospitalization. She met with our addiction medicine specialist list. She was started on acamprosate upon discharge and will follow-up with the [facility] [[email or web address] She needs referral to Rheumatology to explore treatment options for her inflammatory arthritis/sacroiliitis. She was started on celecoxib and lidocaine patch. Time Spent with Patient Time attestation: Total time spent providing and/or coordinating discharge services: 35 Discharge coordination time: Greater than 30 minutes Physical Exam Vital Signs: Vital Signs: Last Vital Signs Temp 97.6 F 10/30/20 12:00 Pulse 83 10/30/20 12:00 Resp 16 10/30/20 12:00 BP 140/99 H 10/30/20 12:00 Pulse Ox 100 10/30/20 12:00 Body Mass Index 22.3 Gen: in no acute distress HEENT: sclera anicteric, moist mucus membranes Neck: supple Lungs: clear to auscultation bilaterally Heart: regular rate and rhythm, no murmurs Abd: soft, non-tender, non-distended Ext: no edema Skin: warm/well-perfused Neuro: alert and oriented x3, no focal findings Psych: appropriate affect DS: Data Data Completed and Pending Completed studies during hospitalization [Text1]: Laboratory Results WBC 4.8 X10*3/uL (4.8-10.8) 10/30/20 06:08 RBC 2.98 X10*6/uL (4.20-5.50) L 10/30/20 06:08 Hgb 10.4 g/dl (12.0-16.0) L 10/30/20 06:08 Hct 28.7 % (37-47) L 10/30/20 06:08 MCV 96.3 fL (80-98) 10/30/20 06:08 MCH 34.9 pg (27.0-33.0) H 10/30/20 06:08 MCHC 36.2 g/dl (31.0-35.0) H 10/30/20 06:08 RDW 16.6 % (11.0-16.0) H 10/30/20 06:08 Plt Count 126 X10*3/uL (160-400) L D 10/30/20 06:08 MPV 9.1 fL (9.4-12.3) L 10/30/20 06:08 Immature Gran % (Auto) 1.2 % (0.0-0.4) H 10/30/20 06:08 Neut % (Auto) 59.7 % (45-73) 10/30/20 06:08 Lymph % (Auto) 24.2 % (20-40) 10/30/20 06:08 Andrews % (Auto) 12.4 % (2-11) H 10/30/20 06:08 Eos % (Auto) 1.9 % (0-4) 10/30/20 06:08 Baso % (Auto) 0.6 % (0-2) 10/30/20 06:08 Lymph # (Auto) 1.2 X10*3/uL (1.2-4.9) 10/30/20 06:08 Andrews # (Auto) 0.6 X10*3/uL (0.1-1.2) 10/30/20 06:08 Eos # (Auto) 0.1 X10*3/uL (0.0-0.4) 10/30/20 06:08 Baso # (Auto) 0.0 X10*3/uL (0.0-0.2) 10/30/20 06:08 Abs Immat Gran (auto) 0.06 X10*3/uL (0.00-0.03) H 10/30/20 06:08 Absolute Neuts (auto) 2.9 X10*3/uL (2.0-8.3) 10/30/20 06:08 Absolute Nucleated RBC 0.000 X10*3/uL (0.0-0.012) 10/30/20 06:08 Nucleated RBC % (auto) 0.0 /100WBC (0.0-0.2) 10/30/20 06:08 Hold Blue Top SEE NOTE 10/26/20 15:32 Sodium 141 mmol/L (135-145) 10/30/20 06:08 Potassium 3.6 mmol/L (3.3-5.1) 10/30/20 06:08 Chloride 104 mmol/L (96-108) 10/30/20 06:08 Carbon Dioxide 27 mmol/L (22-29) 10/30/20 06:08 Anion Gap 14 (12-20) 10/30/20 06:08 BUN 3 mg/dL (9-16) L 10/30/20 06:08 Creatinine 0.59 mg/dL (0.5-1.4) 10/30/20 06:08 Estim Creat Clear Calc 119.3 10/30/20 06:08 Estimated GFR > 60 10/30/20 06:08 Random Glucose 82 mg/dL (60-115) 10/30/20 06:08 Calcium 8.1 mg/dL (8.4-10.2) L 10/30/20 06:08 Magnesium 1.9 mg/dL (1.6-2.6) 10/29/20 06:05 Total Bilirubin 0.6 mg/dL (0.0-1.0) 10/28/20 05:50 Direct Bilirubin 0.2 mg/dL (0.0-0.5) 10/26/20 15:32 AST 33 U/L (5-31) H D 10/28/20 05:50 ALT 16 U/L (0-31) 10/28/20 05:50 Alkaline Phosphatase 51 U/L (39-117) D 10/28/20 05:50 Total Protein 5.2 g/dL (6.5-8.0) L D 10/28/20 05:50 Albumin 2.9 g/dL (3.5-5.0) L D 10/28/20 05:50 Lipase 657 U/L (8-78) H 10/27/20 07:12 Ethyl Alcohol 251 mg/dL 10/26/20 15:32 COVID-19 (BETY) Negative (Negative) 10/26/20 20:36 COVID-19 Clin Com See Note 10/26/20 20:36 Hep Bs Antigen Negative (Negative) 10/28/20 05:50 Hep Bs Antibody REACTIVE (Nonreactive) 10/28/20 05:50 Hep B Core Total Ab Nonreactive (Nonreactive) 10/28/20 05:50 Hepatitis C Ab (EIA) Nonreactive (Nonreactive) 10/28/20 05:50 HIV 1&2 Ab/P24 Ag 4thGn Nonreactive (Nonreactive) 10/28/20 05:[address] 10/26/20 19:56 IMPRESSION: Diffuse fatty infiltration of the liver but no focal hepatic lesion or biliary ductal dilatation. Layering sludge or hyperdense bowel in the dependent portion of the otherwise unremarkable gallbladder. I do not appreciate any pancreatic ductal dilatation or peripancreatic inflammatory changes/fluid at this time. Discharge Plan Discharge Patient Disposition: Home, Self-Care Discharge Diagnosis: alcohol withdrawal, alcoholic pancreatitis, opioid withdrawal Referrals: Júnior Kilgore MD [Primary Care Provider] - 1 Week Discharge Medications: New lidocaine [Lidocaine Pain Relief] 4 % Adhesive Patch,Medicated 2 patch transdermal DAILY Qty: 60 RF: 0 folic acid 1 mg Tablet 1 mg PO DAILY Qty: 30 RF: 0 celecoxib 100 mg Capsule 100 mg PO BID Qty: 60 RF: 0 thiamine mononitrate (vit B1) 100 mg Tablet 100 mg PO DAILY Qty: 30 RF: 0 acamprosate 333 mg tablet,delayed release (DR/EC) 666 mg PO TID Qty: 180 RF: 0 Continued gabapentin 100 mg capsule 3 cap PO BEDTIME RF: 0 Changed sertraline 100 mg tablet 100 mg PO BEDTIME Qty: 1 RF: 0 Discharge Orders: Discharge Order (Routine); Ordered 10/30/20 Ordered By: Valdemar Parker Diet: advance to usual diet Activity on Discharge: As tolerated Stand Alone Forms: Patient Portal Discharge page Care Plan Goals: sobriety Health Concerns: alcohol abuse/withdrawal, opioid dependence Plan of Treatment: sobriety take acamprosate 666mg 3x a day and follow up with [facility] [[email or web address]] as scheduled: [address], [address] [place] [address] take thiamine and folate follow up with your primary care doctor in 1 week and request Rheumatology referral take celecoxib and lidocaine patch for arthritis pain Assessment: alcohol abuse/withdrawal, opioid dependence
[2020-10-30] MEDS: Calcium Carbonate 750 MG TAB.CHEW PO (14:00)
== END 2020-10-30 15:33 | disposition home or self-care (01) | DRG 282 ==
LOC: HO.ED 16:37 → HO.EDOVER 18:57 → HO.S3 10-27 17:54
PROVIDERS: Nurse Practitioner Acute Care; Admitting Provider Family Medicine; Emergency Provider Emergency Medicine; PCP Pediatrics; Visit Provider Family Medicine
DX: K85.20 Alcohol induced acute pancreatitis without necrosis or infection (principal); D69.6 Thrombocytopenia, unspecified; F10.230 Alcohol dependence with withdrawal, uncomplicated; F11.23 Opioid dependence with withdrawal; E83.42 Hypomagnesemia; E87.6 Hypokalemia; M46.1 Sacroiliitis, not elsewhere classified; Z20.822 Contact with and (suspected) exposure to COVID-19; Z79.1 Long term (current) use of non-steroidal anti-inflammatories (NSAID); Z79.899 Other long term (current) drug therapy
CPT/HCPCS: 36415; 74150; 80048; 80053; 80076; 80320; 83690; 83735; 85025; 86704; 86706; 86803; 87340; 87389; 87635; 99285; J1650; J1885; J2270; J2405; J2560; J3411; J3475